=== PATIENT | male | born 1995 | race Caucasian/White ===

== ENCOUNTER 2023-07-16 06:56 | Emergency (ER) | payer SELFPAY ==
[~2023-07-16] VITALS: Ht 180.3 cm; Wt 72.6 kg
[2023-07-16 07:00] VITALS: BP 128/83; PULSE 93; RESP 18; TEMP 98.2; O2SAT 97
[2023-07-16] MEDS: LORazepam 1 MG TAB PO ONE (07:30)
[2023-07-16 07:32] VITALS: O2SAT 99
[2023-07-16] MEDS ORDERED: LORA-476 PO (09:04)
[2023-07-16 09:34] VITALS: BP 115/64; PULSE 84; RESP 20; TEMP 98; O2SAT 100
== END 2023-07-16 09:34 | disposition home or self-care (01) ==
LOC: MED 06:56
DX: F41.9 Anxiety disorder, unspecified (principal); Z79.899 Other long term (current) drug therapy
CPT/HCPCS: 99283